=== PATIENT | male | born 1985 | race Caucasian/White ===

== ENCOUNTER 2020-07-19 16:52 | Emergency (ER) | payer BC ==
[~2020-07-19] VITALS: Ht 167.6 cm; Wt 91.2 kg
[2020-07-19 17:05] VITALS: Ht 167.6 cm; Wt 91.2 kg
[2020-07-19 19:24] VITALS: BP 124/71
== END 2020-07-19 19:24 | disposition home or self-care (01) ==
LOC: ED 16:52
DX: G43.909 Migraine, unspecified, not intractable, without status migrainosus (principal); Z88.8 Allergy status to other drugs, medicaments and biological substances; Z98.890 Other specified postprocedural states
CPT/HCPCS: J0780; J1885; Q0163